=== PATIENT | female | born 1960 | race Caucasian/White ===

== ENCOUNTER 2016-09-20 18:55 | Emergency (ER) | payer MEDICARE, OTHER ==
[2016-09-20 18:19] LABS: INFLUENZA B SCREEN NEGATIVE (NEGATIVE)
[2016-09-20 18:20] LABS: INFLUENZA A SCREEN POSITIVE (NEGATIVE)
== END 2016-09-20 19:06 | disposition home or self-care (01) ==
LOC: ER 18:55
PROVIDERS: Physician Assistant
DX: J11.1 Influenza due to unidentified influenza virus with other respiratory manifestations (principal); F32.9 Major depressive disorder, single episode, unspecified; Z88.5 Allergy status to narcotic agent; Z88.0 Allergy status to penicillin
CPT/HCPCS: 87804; 96372; 99283